=== PATIENT | female | born 1985 | race Caucasian/White ===

== ENCOUNTER 2024-07-18 20:04 | Emergency (ER) | payer OTHER ==
[~2024-07-18] VITALS: Ht 188 cm; Wt 104.3 kg
[2024-07-18 20:27] VITALS: BP 151/93; TEMP 97.8; O2SAT 98
[2024-07-18] MEDS ORDERED: PRED50TA PO (20:56)
[2024-07-18] MEDS ORDERED: CETI-90 PO (20:56)
[2024-07-18] MEDS ORDERED: predniSONE 20 MG TABLET ONE (21:05)
[2024-07-18] MEDS: predniSONE 50 MG TABLET PO ONE (21:06)
== END 2024-07-18 21:10 | disposition home or self-care (01) ==
LOC: ER 20:08
DX: J32.9 Chronic sinusitis, unspecified (principal); I10 Essential (primary) hypertension; F17.200 Nicotine dependence, unspecified, uncomplicated; Z98.890 Other specified postprocedural states
CPT/HCPCS: 99283; J7512